=== PATIENT | female | born 1980 | race Caucasian/White ===

== ENCOUNTER 2018-01-03 18:31 | Emergency (ER) | payer MEDICARE ==
[~2018-01-03] VITALS: Ht 162.6 cm; Wt 88.5 kg
[2018-01-03] MEDS ORDERED: GLUCOPHAGE1000 MG PO (18:57)
[2018-01-03] MEDS ORDERED: DIFLUCAN150 MG PO (19:18)
[2018-01-03] MEDS ORDERED: DOXYCYCLINE HY100 MG PO (19:18)
== END 2018-01-03 19:26 | disposition home or self-care (01) ==
LOC: ED 18:31
DX: L73.2 Hidradenitis suppurativa (principal); E11.9 Type 2 diabetes mellitus without complications; F17.200 Nicotine dependence, unspecified, uncomplicated; Z88.0 Allergy status to penicillin; Z88.5 Allergy status to narcotic agent; Z88.2 Allergy status to sulfonamides; Z88.1 Allergy status to other antibiotic agents; Z79.84 Long term (current) use of oral hypoglycemic drugs
CPT/HCPCS: 99282